=== PATIENT | male | born 1955 | race Caucasian/White ===

== ENCOUNTER → 2022-07-21 12:50 | Outpatient (CLI) | payer OTHER, SELFPAY ==
[2022-07-21 19:27] LABS: Add Manual Diff / Slide Review NO; Basophils Absolute Auto 100 /uL (0-100); Basophils Percent Auto 1.5 % (0-2); Eosinophils Absolute Auto 600 /uL (0-450); Eosinophils Percent Auto 12.7 % (2-4); Hematocrit 44.3 % (41-53); Hemoglobin 15.6 g/dL (13.5-17.5); Lymphocytes Absolute Auto 1700 /uL (1100-4500); Lymphocytes Percent Auto 35.2 % (25-40); Mean Corpuscular HGB Conc 35.3 % (30-36); Mean Corpuscular Hemoglobin 31.7 PG (26-34); Monocytes Absolute Auto 300 /uL (0-900); Neutrophils Absolute Auto 2000 /uL (1500-7000); Neutrophils Percent Auto 43.6 % (50-75); Platelet Count 182 X10^3/uL (150-400); Red Blood Cell Count 4.92 X10^6/uL (4.5-5.9); Red Cell Distribution Width 13.2 % (11.6-14.8); White Blood Cell Count 4.7 X10^3/uL (4.5-11.0)
[2022-07-21 19:40] LABS: Cholesterol 197 mg/dL (140-199); HDL Cholesterol 40 mg/dL (40-60); LDL Cholesterol Calculated 128 mg/dL (<100); Triglycerides 147 mg/dL (35-150)
== END ==
PROVIDERS: PCP Family Medicine; Visit Provider Family Medicine
DX: G44.53 Primary thunderclap headache (principal); I10 Essential (primary) hypertension; N50.0 Atrophy of testis; N52.9 Male erectile dysfunction, unspecified
CPT/HCPCS: 80061; 85025

== ENCOUNTER → 2022-07-31 11:08 | Outpatient (CLI) | payer OTHER, SELFPAY ==
--- NOTE | 2022-07-31 11:10 | DI.CT.S_ITS ---
PROCEDURE: CT HEAD/BRAIN WO CON INDICATIONS: thunderclap headache rule out subarachnoid hemorrhage TECHNIQUE: Noncontrast 4.5 mm thick angled axial sections acquired from the foramen magnum to the vertex, with coronal and sagittal reformats. For radiation dose reduction, the following was used: automated exposure control, adjustment of mA and/or kV according to patient size. COMPARISON: None. FINDINGS: Image quality: Excellent. CSF spaces: Basal cisterns are patent. No extra-axial fluid collections. Ventricles are normal in size and shape. Brain: No midline shift. No intracranial masses or hemorrhage. Bhatia-white matter interface is normal. Skull and face: Calvarium and visualized facial bones are intact, without suspicious lesions. Sinuses: Visualized sinuses and mastoids are clear. IMPRESSION: No acute intracranial abnormality. Dictated by: Pedro Arnold M.D. on 07/31/2022 at 11:25 Approved by: Pedro Arnold M.D. on 07/31/2022 at 11:27
== END ==
PROVIDERS: PCP Family Medicine; Referring Provider Family Medicine; Visit Provider Family Medicine
DX: G44.53 Primary thunderclap headache (principal); I10 Essential (primary) hypertension
CPT/HCPCS: 70450

== ENCOUNTER → 2023-07-02 08:48 | Outpatient (CLI) | payer OTHER, SELFPAY ==
[2023-07-02 19:41] LABS: Add Manual Diff / Slide Review NO; Basophils Absolute Auto 0 /uL (0-100); Basophils Percent Auto 0.8 % (0-2); Eosinophils Absolute Auto 300 /uL (0-450); Eosinophils Percent Auto 5.4 % (2-4); Hematocrit 44.3 % (41-53); Hemoglobin 15.4 g/dL (13.5-17.5); Lymphocytes Absolute Auto 1200 /uL (1100-4500); Lymphocytes Percent Auto 22.5 % (25-40); Mean Corpuscular HGB Conc 34.8 % (30-36); Mean Corpuscular Hemoglobin 31.6 PG (26-34); Monocytes Absolute Auto 400 /uL (0-900); Neutrophils Absolute Auto 3300 /uL (1500-7000); Neutrophils Percent Auto 63.3 % (50-75); Platelet Count 199 X10^3/uL (150-400); Red Blood Cell Count 4.88 X10^6/uL (4.5-5.9); Red Cell Distribution Width 13.1 % (11.6-14.8); White Blood Cell Count 5.3 X10^3/uL (4.5-11.0)
[2023-07-02 19:57] LABS: BUN Creatinine Ratio 15.5 (6-22); Blood Urea Nitrogen 15 mg/dL (9-20); Cholesterol 205 mg/dL (140-199); Estimated Glomerular Filt Rate > 60 mL/min (>60); HDL Cholesterol 39 mg/dL (40-60); LDL Cholesterol Calculated 145 mg/dL (<100); Triglycerides 104 mg/dL (35-150)
[2023-07-02 20:24] LABS: Prostate Specific Antigen Scrn 1.68 ng/mL (0.1-4.0)
== END ==
PROVIDERS: PCP Family Medicine; Visit Provider Family Medicine
DX: E78.5 Hyperlipidemia, unspecified (principal); I10 Essential (primary) hypertension; Z13.0 Encounter for screening for diseases of the blood and blood-forming organs and certain disorders involving the immune mechanism; Z13.1 Encounter for screening for diabetes mellitus; Z13.6 Encounter for screening for cardiovascular disorders; Z12.5 Encounter for screening for malignant neoplasm of prostate
CPT/HCPCS: 80061; 82565; 84520; 85025; G0103

== ENCOUNTER → 2024-06-22 10:03 | Outpatient (CLI) | payer OTHER, SELFPAY ==
[2024-06-22 20:31] LABS: Add Manual Diff / Slide Review NO; Basophils Absolute Auto 0 /uL (0-100); Basophils Percent Auto 0.7 % (0-2); Eosinophils Absolute Auto 200 /uL (0-450); Eosinophils Percent Auto 3.4 % (2-4); Hemoglobin 16.2 g/dL (13.5-17.5); Lymphocytes Absolute Auto 1500 /uL (1100-4500); Lymphocytes Percent Auto 21.8 % (25-40); Mean Corpuscular HGB Conc 34.5 % (30-36); Mean Corpuscular Hemoglobin 31.8 PG (26-34); Monocytes Absolute Auto 600 /uL (0-900); Monocytes Percent Auto 7.9 % (3-14); Neutrophils Absolute Auto 4700 /uL (1500-7000); Neutrophils Percent Auto 66.2 % (50-75); Platelet Count 229 X10^3/uL (150-400); Red Blood Cell Count 5.11 X10^6/uL (4.5-5.9); White Blood Cell Count 7.1 X10^3/uL (4.5-11.0)
[2024-06-22 20:36] LABS: Alanine Aminotransferase 24 IU/L (<50); Albumin 4.5 g/dL (3.5-5.0); Alkaline Phosphatase 59 U/L (38-126); Aspartate Aminotransferase 37 IU/L (17-59); BUN Creatinine Ratio 16.4 (6-22); Bilirubin Total 1.2 mg/dL (0.2-1.3); Blood Urea Nitrogen 19 mg/dL (9-20); Calcium 9.4 mg/dL (8.4-10.2); Carbon Dioxide 26 mmol/L (22-32); Chloride 99 mmol/L (98-107); Cholesterol 221 mg/dL (140-199); Estimated Glomerular Filt Rate > 60 mL/min (>60); Globulin 2.3 g/dL (1.7-4.1); Glucose 102 mg/dL (80-110); HDL Cholesterol 35 mg/dL (40-60); HEMOLYSIS 23 (0-50); LDL Cholesterol Calculated 146 mg/dL (<100); Potassium 4.7 mmol/L (3.4-5.1); Sodium 133 mmol/L (137-145); Total Protein 6.8 g/dL (6.3-8.2); Triglycerides 198 mg/dL (35-150); Uric Acid 7.8 mg/dL (3.5-8.5)
[2024-06-22 21:06] LABS: Prostate Specific Antigen Scrn 1.76 ng/mL (0.1-4.0)
[2024-06-23 15:40] LABS: Hep C Virus Ab w/Reflex Quant NEGATIVE s/c (NEGATIVE)
== END ==
PROVIDERS: PCP Family Medicine; Referring Provider Physician Assistant; Visit Provider Physician Assistant
DX: Z12.5 Encounter for screening for malignant neoplasm of prostate (principal); Z13.6 Encounter for screening for cardiovascular disorders; E78.5 Hyperlipidemia, unspecified; I10 Essential (primary) hypertension; M25.572 Pain in left ankle and joints of left foot; Z11.59 Encounter for screening for other viral diseases
CPT/HCPCS: 80053; 80061; 84550; 85025; 86803; G0103

== ENCOUNTER → 2025-09-27 14:05 | Outpatient (CLI) | payer OTHER, SELFPAY ==
--- NOTE | 2025-09-27 14:06 | DI.CT.S_ITS ---
PROCEDURE: CT ELBOW RIGHT WITHOUT CON INDICATIONS: abnormal xray TECHNIQUE: Noncontrast 1-1.5 mm axial sections were acquired through the elbow joint, with coronal and sagittal reformats. COMPARISON: None. FINDINGS: Image quality: Excellent. Bones: Acute comminuted, impaction fracture of the radial head with 1 mm intra- articular cortical offset. The fracture involves the volar ulnar 50% of the radial head articular surface. Acute impaction fracture of the inferior lateral capitellum. Acute avulsion fracture of the coronoid process of the ulna. Displaced intra-articular fracture fragment in the anterior and posterior elbow joint recesses. Soft tissues: Positive elbow joint effusion. No high-grade discontinuity the distal brachialis or biceps brachii tendons. IMPRESSION: 1. Acute intra-articular, comminuted, mildly impacted radial head fracture which involves the volar ulnar 50% of the articular surface. 2. Acute avulsion fracture of the ulnar coronoid process. 3. Acute, minimal, less than 1 mm, impaction fracture of the capitellum. 4. Intra-articular osseous fragments with the the anterior and posterior joint recesses of the elbow. Dictated by: Daljit Bryson M.D. on 09/27/2025 at 15:16 Approved by: Daljit Bryson M.D. on 09/27/2025 at 15:19
--- NOTE | 2025-09-27 14:06 | DI.CT.S_ITS ---
PROCEDURE: CT ELBOW LEFT WITHOUT CON INDICATIONS: L I injury 14690 DOI 09/03/25 TECHNIQUE: Noncontrast 1-1.5 mm axial sections were acquired through the elbow joint, with coronal and sagittal reformats. COMPARISON: None. FINDINGS: Image quality: Excellent. Bones: Acute, comminuted, impacted, and offset, radial head fracture which involves greater than 50% of the radial head articular surface, results in 4 mm of depression of the articular surface (series 6 image 59). Acute avulsion fracture of the proximal ulna at the insertion of the lateral neural collateral ligament (2/71). No humeral fracture. Soft tissues: Moderate elbow joint effusion. Enthesophytosis at the triceps insertion to the olecranon process. Calcific tendinopathy of the medial common flexor tendon origin. No high-grade tendon discontinuity or entrapment. Punctate displaced osseous fragment within the anterior upper recess (4/50). IMPRESSION: 1. Acute, comminuted, impacted, and offset intra-articular fracture of the radial head which involves greater than 50% of the articular surface. 2. Acute avulsion fracture of the ulna at the insertion of the lateral collateral ligament. 3. Displaced intra-articular punctate osseous fragment in the anterior humeral recess. Dictated by: Daljit Bryson M.D. on 09/27/2025 at 15:19 Approved by: Daljit Bryson M.D. on 09/27/2025 at 15:24
--- NOTE | 2025-09-27 14:06 | DI.CT.S_ITS ---
PROCEDURE: CT WRIST LEFT WITHOUT CON INDICATIONS: fracture fragment seen on xray in 1 view TECHNIQUE: Noncontrast 1 mm axial sections acquired through the carpal bones, with coronal and sagittal reformats. COMPARISON: [facility] ([place]), CR, XR WRIST LT MIN 3V, 09/13/2025, 15:19. [facility] ([place]), CR, XR WRIST RT MIN 3V, 09/13/2025, 15:19. [facility]), CR, XR FOREARM LT 2V, 09/20/2025, 8:28. [facility] ([place]), CR, XR FOREARM RT 2V, 09/20/2025, 8:28. FINDINGS: Image quality: Excellent. Bones: Acute avulsion fracture of the dorsal triquetrum, with approximately 2 mm of dorsal displacement of the avulsed fracture fragment. Intra-articular ganglion cyst formation of the distal pole of the scaphoid. No scaphoid fracture by CT. No joint dislocation. No suspicious lytic or blastic osseous lesion. Soft tissues: Mild soft tissue swelling of the dorsal wrist. No high-grade tendon discontinuity of the flexor or extensor tendons. IMPRESSION: Mildly dorsally displaced triquetral avulsion fracture. Dictated by: Daljit Bryson M.D. on 09/27/2025 at 15:12 Approved by: Daljit Bryson M.D. on 09/27/2025 at 15:15
== END ==
LOC: CT 14:05
PROVIDERS: PCP Family Medicine; Referring Provider Physician Assistant; Visit Provider Physician Assistant
DX: S52.122A Displaced fracture of head of left radius, initial encounter for closed fracture (principal); S52.002A Unspecified fracture of upper end of left ulna, initial encounter for closed fracture; S62.112A Displaced fracture of triquetrum [cuneiform] bone, left wrist, initial encounter for closed fracture; S52.121A Displaced fracture of head of right radius, initial encounter for closed fracture; S52.041A Displaced fracture of coronoid process of right ulna, initial encounter for closed fracture; S62.131A Displaced fracture of capitate [os magnum] bone, right wrist, initial encounter for closed fracture; R93.89 Abnormal findings on diagnostic imaging of other specified body structures; M67.432 Ganglion, left wrist; X58.XXXA Exposure to other specified factors, initial encounter
CPT/HCPCS: 73080; 73200; 99213

== ENCOUNTER → 2025-10-30 13:52 | Outpatient (CLI) | payer MEDICARE, OTHER, SELFPAY ==
--- NOTE | 2025-10-30 13:54 | DI.RAD.S_ITS ---
PROCEDURE: XR DEXA AXIAL SKELETON INDICATIONS: Multiple fractures. Bone density screening COMPARISON: None. FINDINGS: Lumbar Spine: Bone mineral density 1.302 g/cm2, T score 2.3, normal density. Left Femoral Neck: Bone mineral density 0.943 g/cm2, T score 0.8. Left Hip: Bone mineral density 1.175 g/cm2, T score 1.9, normal density. Fracture Risk Calculation (when applicable): Nonoperable due to normal bone mineral density. (T score greater or equal to -1.0 to: NORMAL) (T score from -1.1 to -2.4: OSTEOPENIA) (T score less than or equal to -2.5: OSTEOPOROSIS) IMPRESSION: Normal bone mineral density. Follow-up guidelines as follows: Osteoporosis: Consider a repeat DEXA and Vertebral Fracture Assessment (VFA) exam in 2 years or sooner if medically necessary, to reassess this patient's status. Osteopenia: Consider a repeat DEXA in 2-3 years to reassess this patient's status, or if there is a new clinical indication. Normal: Consider a repeat DEXA in 5 years or sooner, or if there is a new clinical indication. All treatment decisions require clinical judgment and consideration of individual patient factors, including patient preferences, comorbidities, previous drug use, risk factors not captured in the FRAX model (e.g., frailty, falls, vitamin D deficiency, increased bone turnover, interval significant decline in bone density ) and possible under- or over-estimation of fracture risk by FRAX. In addition, the NOF Guide recommends that FDA-approved medical therapies be considered in postmenopausal women and men age >= 50 years with a: * Hip or vertebral (clinical or morphometric) fracture * T-score of <=-2.5 at the spine or hip * Ten-year fracture probability by FRAX of >= 3% for hip fracture or >=20% for major osteoporotic fracture. Dictated by: Leslie Randolph M.D. on 10/31/2025 at 9:59 Approved by: Leslie Randolph M.D. on 10/31/2025 at 10:01
== END ==
PROVIDERS: PCP Family Medicine; Referring Provider Physician Assistant; Visit Provider Physician Assistant
DX: M85.89 Other specified disorders of bone density and structure, multiple sites (principal)
CPT/HCPCS: 77080

== ENCOUNTER → 2025-11-02 10:00 | Outpatient (CLI) | payer MEDICARE, OTHER, SELFPAY ==
[2025-11-02 18:52] LABS: Add Manual Diff / Slide Review NO; Hematocrit 46.4 % (41-53); Hemoglobin 16.1 g/dL (13.5-17.5); Lymphocytes Absolute Auto 1200 /uL (1100-4500); Mean Corpuscular HGB Conc 34.6 % (30-36); Mean Corpuscular Hemoglobin 31.2 PG (26-34); Mean Corpuscular Volume 90.1 fL (80-100); Platelet Count 194 X10^3/uL (150-400)
[2025-11-02 18:56] LABS: Alanine Aminotransferase 23 IU/L (<50); Albumin 4.6 g/dL (3.5-5.0); Albumin Globulin Ratio 1.9 (1.0-2.8); Alkaline Phosphatase 67 U/L (38-126); Blood Urea Nitrogen 14 mg/dL (9-20); Calcium 9.9 mg/dL (8.4-10.2); Carbon Dioxide 23 mmol/L (22-32); Chloride 104 mmol/L (98-107); Cholesterol 229 mg/dL (140-199); Estimated Glomerular Filt Rate > 60 mL/min (>60); Globulin 2.4 g/dL (1.7-4.1); Glucose 101 mg/dL (70-99); HDL Cholesterol 38 mg/dL (40-60); HEMOLYSIS < 15 (0-50); Potassium 4.2 mmol/L (3.4-5.1); Sodium 138 mmol/L (137-145); Total Protein 7.0 g/dL (6.3-8.2); Triglycerides 168 mg/dL (35-150)
[2025-11-02 19:20] LABS: Vitamin D 25 Hydroxy (D3) 55.1 ng/mL (30.0-100.0)
[2025-11-02 19:25] LABS: TSH w/ Reflex to FT4 3.08 uIU/mL (0.47-4.68)
== END ==
PROVIDERS: PCP Family Medicine; Visit Provider Physician Assistant
DX: Z12.5 Encounter for screening for malignant neoplasm of prostate (principal); G44.53 Primary thunderclap headache; I10 Essential (primary) hypertension; T07.XXXA Unspecified multiple injuries, initial encounter; Z79.899 Other long term (current) drug therapy
CPT/HCPCS: 80053; 80061; 82306; 84443; 85025; G0103